=== PATIENT | female | born 1935 | race Caucasian/White ===

== ENCOUNTER 2021-01-04 12:18 | Inpatient (IN) ==
[2021-01-04] MEDS ORDERED: Morphine 4 MG/ML VIAL (1 ml) IV ONE (12:39)
[2021-01-04] MEDS ORDERED: Diazepam INJ CARPUJECT 5 MG/ML IV ONE (13:24)
[2021-01-04 13:57] LABS: ABS Basophils 0.1 10^3/ul (0-0.2); ABS Eosinophils 0.3 10^3/ul (0-0.6); ABS Lymphocytes 2.1 10^3/ul (1.0-4.8); ABS Monocytes 0.9 10^3/ul (0-0.8); ABS Neutrophils 14.1 10^3/ul (1.5-7.7); Eosinophil % 1.8 %; Hematocrit 43 % (35-47); Hemoglobin 14.1 g/dL (12.0-16.0); Lymphocyte % 12.3 %; Mean Corpuscular HGB Conc 33 g/dL (31-36); Mean Corpuscular Hemoglobin 31 pg (27-31); Mean Corpuscular Volume 94 fL (80-97); Platelet Count 294 10^3/uL (150-450); Red Blood Count 4.58 10^6 /uL (3.70-4.87); Red Cell Distribution Width 15 % (10-15); White Blood Count 17.4 10^3/uL (3.5-10.8)
[2021-01-04 14:09] LABS: INR 1.04 (0.82-1.09)
[2021-01-04 14:17] LABS: Albumin 3.5 g/dL (3.2-5.2); EGFR African American 39.5 (>60); EGFR Non-African American 32.7 (>60); Globulin 2.5 g/dL (2-4)
[2021-01-04 14:18] LABS: Albumin/Globulin Ratio 1.4 (1-3); C Reactive Protein 1.21 mg/L (<8.01); Total Bilirubin 0.4 mg/dL (0.2-1.0)
[2021-01-04 14:19] LABS: Potassium 5.2 mmol/L (3.5-5.0)
[2021-01-04 14:50] LABS: TSH Ultra Thyroid Stim Horm 7.64 mcIU/mL (0.34-5.60)
[2021-01-04] MEDS: HYDROmorphone 0.5 MG/0.5 ML SYRINGE IV SLOW PU PRN ×2 (17:11→21:57)
[2021-01-04] MEDS: Heparin 5000 UNITS/ML 1 mL VIAL SUBCUT SCH ×2 (20:55→21:42)
[2021-01-05] MEDS: HYDROmorphone 0.5 MG/0.5 ML SYRINGE IV SLOW PU PRN ×2 (02:00→06:06)
[2021-01-05 08:15] LABS: Hematocrit 37 % (35-47); Hemoglobin 12.4 g/dL (12.0-16.0); Mean Corpuscular HGB Conc 33 g/dL (31-36); Mean Corpuscular Hemoglobin 31 pg (27-31); Mean Corpuscular Volume 94 fL (80-97); Mean Platelet Volume 7.9 fL (7.4-10.4); Platelet Count 242 10^3/uL (150-450); Red Blood Count 3.97 10^6 /uL (3.70-4.87); Red Cell Distribution Width 15 % (10-15)
[2021-01-05 08:29] LABS: Calcium 8.4 mg/dL (8.6-10.3); EGFR African American 41.8 (>60); EGFR Non-African American 34.5 (>60)
[2021-01-05 08:45] LABS: Potassium 5.1 mmol/L (3.5-5.0)
[2021-01-05] MEDS ORDERED: HYDROmorphone 0.5 MG/0.5 ML SYRINGE IV SLOW PU PRN (08:52)
[2021-01-05] MEDS ORDERED: Senna TAB 8.6 mg TAB PO PRN (09:12)
[2021-01-05] MEDS ORDERED: Magnesium Hydroxide LIQ 30 ML UDC PO PRN (09:12)
[2021-01-05] MEDS ORDERED: Polyethylene Glycol 3350 17 GM PACKET PO PRN (09:12)
[2021-01-05] MEDS: NS 0.9% 1000 ml BAG 1,000 ML IV SCH (09:37)
[2021-01-05] MEDS ORDERED: Lidocaine 2% PF 5 ML VIAL ONE (12:28)
[2021-01-05] MEDS ORDERED: Propofol 10 MG/ML 20 ML BTL ONE (12:28)
[2021-01-05] MEDS ORDERED: fentaNYL 100 mcg/2 ml 50 MCG/ML VIAL ONE (12:28)
[2021-01-05] MEDS ORDERED: Phenylephrine IV 10 MG/ML 1 ml VIAL ONE (12:29)
[2021-01-05] MEDS ORDERED: Rocuronium 50 mg VIAL 10 mg/ml 5 ml VIAL (50 mg) ONE (13:49)
[2021-01-05] MEDS ORDERED: ceFAZolin 2 GM PREMIX 2 GM/50 ML BAG ONE (13:58)
[2021-01-05] MEDS ORDERED: Dexamethasone IV 4 MG/ML VIAL 1 ml VIAL ONE (14:52)
[2021-01-05] MEDS ORDERED: Ondansetron 4 mg VIAL 2 MG/ML 2 ml VIAL ONE (14:52)
[2021-01-05] MEDS ORDERED: Acetaminophen IV 1 GM/100ML 100 ML ONE (15:28)
[2021-01-05] MEDS ORDERED: Naloxone 0.4 mg VIAL 0.4 mg/ml 1 ml VIAL IV PRN (17:23)
[2021-01-05] MEDS: HYDROcodone/ACETAMIN 5/325 mg TAB PO PRN (18:13)
[2021-01-05 18:22] LABS: Troponin I 0.04 ng/mL (<0.03)
[2021-01-05 19:56] LABS: Urine Appearance Cloudy; Urine Bilirubin Negative (Negative); Urine Blood Negative (Negative); Urine Color Yellow; Urine Glucose Negative (Negative); Urine Ketones Negative (Negative); Urine Nitrite Negative (Negative); Urine Protein Negative (Negative); Urine Specific Gravity 1.017 (1.002-1.030); Urine Urobilinogen Negative (Negative)
[2021-01-05 19:57] LABS: Urine Bacteria 3+ (Absent); Urine Red Blood Cell Trace(0-2/hpf) (Absent); Urine Squamous Epithelial Cell Present (Absent); Urine White Blood Cell 1+(6-10/hpf) (Absent)
[2021-01-05] MEDS: Magnesium Hydroxide LIQ 30 ML UDC PO SCH (22:06)
[2021-01-05] MEDS: ceFAZolin 1 GM X 3 DOSES POST-OP Q8H (AddVan) IVPB SCH (23:13)
[2021-01-06 00:08] LABS: Troponin I 0.33 ng/mL (<0.03)
[2021-01-06] MEDS ORDERED: Metoprolol Tartrate 5 mg VIAL 5 ml VIAL (1 mg/ml) IV ONE (00:41)
[2021-01-06 03:28] LABS: Troponin I 0.39 ng/mL (<0.03)
[2021-01-06] MEDS: NS 0.9% 1000 ml BAG 1,000 ML IV SCH ×2 (04:16→15:15)
[2021-01-06 06:27] LABS: ABS Monocytes 0.8 10^3/ul (0-0.8); ABS Neutrophils 15.4 10^3/ul (1.5-7.7); Hematocrit 40 % (35-47); Hemoglobin 13.1 g/dL (12.0-16.0); Lymphocyte % 10.8 %; Mean Corpuscular HGB Conc 33 g/dL (31-36); Mean Corpuscular Hemoglobin 31 pg (27-31); Mean Corpuscular Volume 94 fL (80-97); Mean Platelet Volume 8.2 fL (7.4-10.4); Platelet Count 260 10^3/uL (150-450); Red Blood Count 4.25 10^6 /uL (3.70-4.87); Red Cell Distribution Width 16 % (10-15); White Blood Count 18.2 10^3/uL (3.5-10.8)
[2021-01-06 06:45] LABS: Blood Urea Nitrogen 31 mg/dL (6-24); CO2 Carbon Dioxide 18 mmol/L (22-32); Calcium 8.5 mg/dL (8.6-10.3); Chloride 106 mmol/L (101-111); EGFR African American 43.9 (>60); EGFR Non-African American 36.3 (>60); Glucose 128 mg/dL (70-100); Magnesium 1.7 mg/dL (1.9-2.7); Sodium 134 mmol/L (135-145)
[2021-01-06 06:49] LABS: Anion Gap 10 mmol/L (2-11); Potassium 5.6 mmol/L (3.5-5.0); Troponin I 0.72 ng/mL (<0.03)
[2021-01-06] MEDS ORDERED: Magnesium Sulfate 2 gm BAG 2 GM/50 ML BAG IVPB ONE (06:53)
[2021-01-06] MEDS ORDERED: Sodium Polystyrene ORAL.SUSP 15 GM/60 ML BTL PO ONE ×2 (06:54→16:00)
[2021-01-06] MEDS ORDERED: Dextrose 50% Syringe 50 ml 25 GM/50 ML SYRINGE IV PUSH PRN (06:58)
[2021-01-06] MEDS ORDERED: Dextrose 50% Syringe 50 ml 25 GM/50 ML SYRINGE IV PUSH ONE (06:58)
[2021-01-06] MEDS: ceFAZolin 1 GM X 3 DOSES POST-OP Q8H (AddVan) IVPB SCH ×2 (07:28→15:10)
[2021-01-06] MEDS: Magnesium Hydroxide LIQ 30 ML UDC PO SCH ×2 (09:36→21:09)
[2021-01-06] MEDS: Heparin 5000 UNITS/ML 1 mL VIAL SUBCUT SCH ×2 (09:37→21:16)
[2021-01-06 10:04] LABS: Troponin I 0.71 ng/mL (<0.03)
[2021-01-06 13:38] LABS: Calcium 8.2 mg/dL (8.6-10.3); EGFR African American 43.5 (>60); EGFR Non-African American 35.9 (>60)
[2021-01-06] MEDS: HYDROcodone/ACETAMIN 5/325 mg TAB PO PRN (19:50)
[2021-01-07] MEDS: NS 0.9% 1000 ml BAG 1,000 ML IV SCH (01:26)
[2021-01-07 04:58] LABS: ABS Eosinophils 0.2 10^3/ul (0-0.6); ABS Lymphocytes 2.2 10^3/ul (1.0-4.8); ABS Monocytes 0.9 10^3/ul (0-0.8); ABS Neutrophils 8.2 10^3/ul (1.5-7.7); Eosinophil % 1.6 %; Hematocrit 33 % (35-47); Hemoglobin 10.7 g/dL (12.0-16.0); Lymphocyte % 19.3 %; Mean Corpuscular HGB Conc 32 g/dL (31-36); Mean Corpuscular Hemoglobin 31 pg (27-31); Mean Corpuscular Volume 95 fL (80-97); Mean Platelet Volume 8.5 fL (7.4-10.4); Platelet Count 215 10^3/uL (150-450); Red Blood Count 3.51 10^6 /uL (3.70-4.87); Red Cell Distribution Width 15 % (10-15); White Blood Count 11.6 10^3/uL (3.5-10.8)
[2021-01-07 05:14] LABS: Calcium 7.6 mg/dL (8.6-10.3); EGFR African American 48.3 (>60); EGFR Non-African American 39.9 (>60); Potassium 4.7 mmol/L (3.5-5.0)
[2021-01-07] MEDS ORDERED: NS 0.9% 1000 ml BAG 1,000 ML IV ONE (05:59)
[2021-01-07 06:04] LABS: Magnesium 2.2 mg/dL (1.9-2.7)
[2021-01-07] MEDS ORDERED: NS 0.9% 1000 ml BAG 1,000 ML IV SCH (08:30)
[2021-01-07] MEDS: HYDROcodone/ACETAMIN 5/325 mg TAB PO PRN ×3 (08:54→18:09)
[2021-01-07] MEDS: Heparin 5000 UNITS/ML 1 mL VIAL SUBCUT SCH ×2 (08:55→21:47)
[2021-01-07] MEDS: Magnesium Hydroxide LIQ 30 ML UDC PO SCH ×2 (08:55→21:48)
[2021-01-07] MEDS ORDERED: Calcium Carb (TUMS) 500 mg CHEW TAB PO PRN (16:25)
[2021-01-08 05:23] LABS: ABS Basophils 0.1 10^3/ul (0-0.2); ABS Eosinophils 0.5 10^3/ul (0-0.6); ABS Lymphocytes 2.7 10^3/ul (1.0-4.8); ABS Monocytes 0.9 10^3/ul (0-0.8); ABS Neutrophils 5.2 10^3/ul (1.5-7.7); Eosinophil % 5.2 %; Hematocrit 33 % (35-47); Hemoglobin 10.7 g/dL (12.0-16.0); Lymphocyte % 29.1 %; Mean Corpuscular HGB Conc 33 g/dL (31-36); Mean Corpuscular Hemoglobin 31 pg (27-31); Mean Corpuscular Volume 96 fL (80-97); Mean Platelet Volume 8.2 fL (7.4-10.4); Platelet Count 179 10^3/uL (150-450); Red Blood Count 3.43 10^6 /uL (3.70-4.87); Red Cell Distribution Width 16 % (10-15); White Blood Count 9.4 10^3/uL (3.5-10.8)
[2021-01-08 05:29] LABS: CO2 Carbon Dioxide 15 mmol/L (22-32); Calcium 6.9 mg/dL (8.6-10.3); Chloride 110 mmol/L (101-111); Sodium 132 mmol/L (135-145)
[2021-01-08 05:34] LABS: Anion Gap 7 mmol/L (2-11)
[2021-01-08 05:35] LABS: Blood Urea Nitrogen 32 mg/dL (6-24); EGFR African American 58.8 (>60); EGFR Non-African American 48.6 (>60); Glucose 86 mg/dL (70-100)
[2021-01-08] MEDS: HYDROcodone/ACETAMIN 5/325 mg TAB PO PRN (09:06)
[2021-01-08] MEDS: Heparin 5000 UNITS/ML 1 mL VIAL SUBCUT SCH (09:06)
[2021-01-08] MEDS: Magnesium Hydroxide LIQ 30 ML UDC PO SCH (10:26)
[2021-01-08 11:17] VITALS: BP 99/56
== END 2021-01-08 12:10 | disposition swing bed (61) ==
LOC: ED 12:18 → SSU 14:05
PROVIDERS: ADMIT Hospitalist; ATTEND Internal Medicine